=== PATIENT | male | born 1970 | race Caucasian/White ===

== ENCOUNTER 2023-05-10 08:15 | Outpatient (OUT) | payer OTHER, SELFPAY ==
[2023-05-10 08:44] LABS: Basophils Absolute Auto 0.1 10^3/uL (0.0-0.1); Basophils Percent Auto 0.8 % (0.2-2.0); Eosinophils Absolute Auto 0.2 10^3/uL (0.0-0.7); Eosinophils Percent Auto 2.5 % (0.9-7.0); Hematocrit 45.7 % (42.0-54.0); Immature Granulocytes Abs Auto 0.04 10^3/uL (0.00-0.03); Immature Granulocytes Pct Auto 0.5 % (0.0-0.5); Lymphocytes Absolute Auto 3.4 10^3/uL (1.2-3.8); Lymphocytes Percent Auto 38.1 % (20.5-60.0); Mean Corpuscular Hemoglobin 30.4 pg (25.9-34.0); Mean Corpuscular Volume 86.7 fL (80.0-94.0); Mean Platelet Volume 10.5 fL (9.5-13.5); Monocytes Absolute Auto 0.5 10^3/uL (0.3-0.8); Monocytes Percent Auto 5.3 % (1.7-12.0); Neutrophils Absolute Auto 4.7 10^3/uL (1.4-6.5); Neutrophils Percent Auto 52.8 % (43.0-75.0); Platelet Count 238 10^3/uL (150-450); Red Blood Count 5.27 10^6/uL (4.70-6.10); Red Cell Distribution Width 12.2 % (11.0-15.0); White Blood Count 8.9 10^3/uL (4.0-11.0)
[2023-05-10 09:04] LABS: Bilirubin Urine NEGATIVE (NEGATIVE); Blood Urine TRACE-I (NEGATIVE); Clarity Urine CLEAR (CLEAR); Color Urine YELLOW (YELLOW); Glucose Urine UA >=1000 mg/dL (NEGATIVE); Ketones Urine 15 mg/dL (NEGATIVE); Leukocyte Esterase Urine NEGATIVE (NEGATIVE); Nitrite Urine NEGATIVE (NEGATIVE); Protein Urine 30 mg/dL (NEG/TRACE); Specific Gravity Urine 1.015 (1.005-1.025); Urobilinogen Urine 0.2 EU/dL (0.2-1.0); pH Urine 5.5 (5.0-9.0)
[2023-05-10 09:14] LABS: Bacteria Urine NONE SEEN #/HPF (NONE SEEN); Cast Seen? NONE SEEN #/LPF (NONE SEEN); Crystals Seen? None Seen #/HPF (None Seen); Mucus Urine NONE SEEN (NONE SEEN); RBC Urine NONE SEEN #/HPF (0-2); Squamous Epithelial Cell Urine NONE SEEN #/LPF (NONE/RARE); WBC Urine NONE SEEN #/HPF (NONE SEEN)
[2023-05-10 09:33] LABS: Estimated Average Glucose 344 mg/dL; Glycohemoglobin A1C 13.6 % (4.5-6.2)
[2023-05-10 09:40] LABS: Free T4 1.15 ng/dL (0.76-1.46)
[2023-05-10 09:50] LABS: Alanine Aminotransferase 198 U/L (16-63); Albumin Globulin Ratio 0.9; Albumin Level 3.8 g/dL (3.4-5.0); Alkaline Phosphatase 119 U/L (46-116); Anion Gap 18.5; Aspartate Amino Transferase 168 U/L (15-37); Calcium 9.3 mg/dL (8.5-10.1); Carbon Dioxide 23.2 mmol/L (21.0-32.0); Chloride 97 mmol/L (98-107); Estimated GFR (African America >60 (>=60); Estimated GFR (Non-African Ame >60 (>=60); Free T3 2.82 pg/mL (2.18-3.98); Globulin 4.1 g/dL; Glucose 402 mg/dL (74-106); Potassium 3.7 mmol/L (3.5-5.1); Sodium 135 mmol/L (136-145); Thyroid Stimulating Hormone 0.691 uIU/mL (0.358-3.740); Total Protein 7.9 g/dL (6.4-8.2)
[2023-05-11 13:07] LABS: Insulin 10.5 uIU/mL (2.6-24.9)
== END 2023-05-10 08:16 | disposition home or self-care (01) ==
PROVIDERS: PCP Family Medicine; Visit Provider Family Medicine
DX: Z00.00 Encounter for general adult medical examination without abnormal findings (principal); R35.0 Frequency of micturition; R53.83 Other fatigue; Z79.899 Other long term (current) drug therapy
CPT/HCPCS: 36415; 80053; 81001; 83036; 83525; 84439; 84443; 84481; 85025; 87086

== ENCOUNTER 2024-01-31 07:05 | Outpatient (OUT) | payer OTHER, SELFPAY ==
[2024-01-31 07:31] LABS: Basophils Absolute Auto 0.1 10^3/uL (0.0-0.1); Basophils Percent Auto 0.7 % (0.2-2.0); Eosinophils Absolute Auto 0.3 10^3/uL (0.0-0.7); Eosinophils Percent Auto 3.3 % (0.9-7.0); Hematocrit 45.2 % (42.0-54.0); Immature Granulocytes Abs Auto 0.05 10^3/uL (0.00-0.03); Immature Granulocytes Pct Auto 0.5 % (0.0-0.5); Lymphocytes Absolute Auto 3.3 10^3/uL (1.2-3.8); Lymphocytes Percent Auto 32.4 % (20.5-60.0); Mean Corpuscular HGB Conc 33.2 g/dL (29.9-35.2); Mean Corpuscular Hemoglobin 29.7 pg (25.9-34.0); Mean Corpuscular Volume 89.5 fL (80.0-94.0); Mean Platelet Volume 9.9 fL (9.5-13.5); Monocytes Absolute Auto 0.6 10^3/uL (0.3-0.8); Monocytes Percent Auto 6.2 % (1.7-12.0); Neutrophils Absolute Auto 5.8 10^3/uL (1.4-6.5); Neutrophils Percent Auto 56.9 % (43.0-75.0); Platelet Count 216 10^3/uL (150-450); Red Blood Count 5.05 10^6/uL (4.70-6.10); Red Cell Distribution Width 12.8 % (11.0-15.0); White Blood Count 10.3 10^3/uL (4.0-11.0)
[2024-01-31 07:36] LABS: Estimated Average Glucose 108 mg/dL; Glycohemoglobin A1C 5.4 % (4.5-6.2)
[2024-01-31 10:40] LABS: Alanine Aminotransferase 37 U/L (16-63); Albumin Globulin Ratio 1.2; Alkaline Phosphatase 59 U/L (46-116); Anion Gap 13.1; Aspartate Amino Transferase 20 U/L (15-37); Bilirubin Total 1.1 mg/dL (0.2-1.0); Calcium 9.5 mg/dL (8.5-10.1); Carbon Dioxide 27.9 mmol/L (21.0-32.0); Chloride 105 mmol/L (98-107); Chol HDL Ratio 4.3; Cholesterol 193 mg/dL (<=200); Estimated GFR (African America >60 (>=60); Estimated GFR (Non-African Ame >60 (>=60); Free T3 3.15 pg/mL (2.18-3.98); Globulin 3.4 g/dL; Glucose 94 mg/dL (74-106); HDL Cholesterol 45 mg/dL (40-60); Sodium 142 mmol/L (136-145); Thyroid Stimulating Hormone 0.982 uIU/mL (0.358-3.740); Total Protein 7.4 g/dL (6.4-8.2); Triglycerides 211 mg/dL (<=150); VLDL CHOLESTEROL 42.2 mg/dL
[2024-01-31 10:45] LABS: Prostate Specific Antigen Scrn 0.29 ng/mL (<=4.00)
== END 2024-01-31 07:06 | disposition home or self-care (01) ==
PROVIDERS: PCP Family Medicine; Visit Provider Family Medicine
DX: Z00.00 Encounter for general adult medical examination without abnormal findings (principal)
CPT/HCPCS: 36415; 80053; 80061; 83036; 84436; 84443; 84481; 85025; G0103

== ENCOUNTER 2024-02-11 06:30 | Outpatient (REF) | payer OTHER, SELFPAY ==
[2024-02-11 20:13] LABS: Internal Control Within Normal Limits; Occult Blood Negative
--- OUTSIDE RECORDS SUMMARY | 2024-02-16 09:09 | XMS_ITS | CCD ---
Author Organization [facility] [employer] [facility] Medications Current Medications Medication Drug Class(es) Dates Sig (Normalized) Sig (Original) losartan potassium 100 mg oral tablet (1 source) Angiotensin 2 Receptor Stuart Start: 12-20-2023 take 100 mg by mouth once daily Losartan Active 100 MG PO Daily December 20, 2023 12:00am metFORMIN hydrochloride 500 mg oral tablet (1 source) Biguanide Start: 12-20-2023 take 500 mg by mouth twice daily at mealtime Metformin Active 500 MG PO Twice daily with meals December 20, 2023 12:00am metoprolol tartrate 50 mg oral tablet (1 source) beta-Adrenergic Stuart Start: 12-20-2023 take 50 mg by mouth twice daily Metoprolol Tartrate Active 50 MG PO Twice daily December 20, 2023 12:00am Vital Signs Date Time Vital Sign Value Performing Clinician Bev samuel 12-20-2023 11:28-0400 Body height 185.42 cm [facility] 12-20-2023 11:28-0400 Body mass index (BMI) [Ratio] 32.8 kg/m2 [facility] 12-20-2023 11:28-0400 Body temperature 98.2 [degF] [facility] 12-20-2023 11:28-0400 Body weight 113.05 kg [facility] 12-20-2023 11:28-0400 Heart rate 74 /min [facility] 12-20-2023 11:28-0400 Respiratory rate 18 /min [facility] 12-20-2023 11:28-0400 SaO2% (BldA) [Mass fraction] 98 % [facility] Encounters Encounter Date Encounter Type Care Provider Facility Start: 12-20-2023 End: 12-20-2023 ambulatory [facility] Work Phone: Start: 12-20-2023 End: 12-20-2023 Patient encounter procedure [facility] Work Phone: Payers Date Payer Category Payer Policy ID Unknown [place] [id number] Unknown [facility] [id number] Unknown [facility] [id number] Social History Date Type Detail Facility Start: 12-20-2023 Tobacco smoking stat us AKIS Never smoked tobacco (finding) [facility] Start: 1970 Sex Assigned At Male F [facility] Evaluation note Note Date & Type Note Facility Evaluation note No assessment information availa ble [facility] Work Phone: Chief Complaint and Reason for Visit Chief Complaint Sinus congestion, co ugh, headache, ear discomfort Family History Relationship Condition Age at Onset Recorded Date/T vanda father Hypertension Unknown Not Specified Diabetes mellitus Unknown Advance Directives Advance Directive Response Recorded Date/ Time Advance Directives No December 19 11:20am Additional Source Comments Care Teams (unrecognized sec tion and content) Team Status: Active Member Role Status Dates Neeraj Cortez MD Primary Care Provider Active Team Status: Inactive Member Role Status Dates Sadaf Roberts APRN Attending Provider Active Start: December 20, 2023 End: December 20, 2023 Neeraj Cortez MD Primary Care Provider Active Start: December 20, 2023 End: December 20, 2023 Goals (unrecognized section and content) Goals may be documented in a n alternate section FOR RECORDS PERTAINING TO PATIENTS WHO ARE OR HAVE BEEN ENROLLED IN A CHEMICAL DEPENDENCY/SUBSTANCEABUSE PROGRAM, SOME INFORMATION MAY BE OMITTED. This clinical summary was aggregated from multiple sources. Caution should be exercised in using it in the provision of clinical care. This summary normalizes information from multiple sources, and as a consequence, information in this document may materially change the coding, format and clinical context of patient data. In addition, data may be omitted in some cases. CLINICAL DECISIONS SHOULD BE BASED ON THE PRIMARY CLINICAL RECORDS. [facility] [employer] [facility]. provides no warranty or guarantee of the accuracy or completeness of information in this document.
== END 2024-02-11 06:31 | disposition home or self-care (01) ==
LOC: LAB 06:30
PROVIDERS: PCP Family Medicine; Visit Provider Family Medicine
DX: Z00.00 Encounter for general adult medical examination without abnormal findings (principal)
CPT/HCPCS: G0328

== ENCOUNTER 2025-02-26 07:46 | Outpatient (OUT) | payer OTHER, SELFPAY ==
--- OUTSIDE RECORDS SUMMARY | 2024-12-27 11:00 | XMS_ITS ---
Author Organization [facility] in [place] Address [address] [place] [address] Care Team Providers Care Spring Fitter Name Role Phone Dana Mendoza Primary Care Provider [phone] REASON FOR VISIT bp Vital Signs Blood pressure systolic 162 mm Hg 12/28/19 25 Blood pressure diastolic 88 mm Hg 025 Height 73 in 12/27/2024 Encounters Encounter Location Date Provider Diagnosis [facility] [address] [place] [address] 12/27/2024 Mendoza Cortez Hypertension I10 Assessments Encounter Date Diagnosis (ICD Code) Assessment Notes Treatment Notes Treatment Clinical Notes Section Notes 12/27/2024 Hypertension (ICD-10 - I10) Plan Of Treatment Next Appt Details Provider Name:Mendoza Cortez, 04:00:00 PM, [address] [place], [address], Progress Notes * Alberto THAPA CDOB:1970 (54 yo M)Acc No.[id number]:12/27/2024 Nurse Visit Patient: Alberto LANGE Provider: Mary Cotrez [facility] Jacinto :1970 A ge:54 Y S ex:Male Date:12/27/2024 Address:[address] [place] [address], [facility] Check In:04:17 PM ESTCheck O ut:04:27 PM EST Subjective: * Chief Complaints: * 1 . Bp. * Active Problem List I10 Essential (primary) hypertension Modified On:10/01/2023 Status:confirmed J30.9 Allergic rhinitis Modified On:06/05/2023 Status:confirmed M25.50 Arthralgia Modified On:06/05/2023 Status:confirmed E78.00 Hypercholesteremia Modified On:06/05/2023 Status:confirmed F41.9 Anxiety Modified On:06/05/2023 Status:confirmed E11.9 Diabetes mellitus Modified On:10/01/2023 Status:confirmed V70.0 Well adult Modified On:01/28/2024 Status:confirmed * Medical History: Objective: * Vitals: H t: 73 in, BP:162/88mm Hg, Ht-cm: 185.42 cm. Assessment: * Assessment: 1. H ypertension - I10 (Primary) Plan: * Treatment: * Procedure Codes: N OCHG NO CHARGE * * Sign off status: Completed Visit Status: C HK (Check Out) true * Provider: Mary Cortez ([facility])MD Date: 0 12/27/2024 Generated for Kathy jewell/Maxine/Quitaitting on: 02/26/2025 07:51 AM EDT
--- OUTSIDE RECORDS SUMMARY | 2024-12-27 12:28 | XMS_ITS ---
Author Organization [facility] [place] Address [address] [place] [address] Care Team Providers Care Improvement Manager Name Role Phone Mendoza Cortez Primary Care Provider [phone] REASON FOR VISIT BP check Medications Medication SIG (Take, Route, Fr equency, Duration) Notes Start Date End Date Status Irbesartan 300 MG 1 tablet Orally Once a day for 30 days 11/18/2024 Active Encounters Encounter Location Date Provider Diagnosis [facility] [address] [place] [address] 12/27/2024 Mendoza Dana Plan Of Treatment Medication Medication Name Sig Start Date Stop Date Notes Irbesartan 300 MG 1 tablet Orally Once a day for 30 days 0 11/18/2024 Next Appt Details Provider Name:Mendoza Ol[place]stead Wesmehul, 04:00:00 PM, [address] [place], [address], Progress Notes * Alberto THAPA CDOB:1970 (54 yo M)Acc No.[id number]:12/27/2024 Patient: Jude Alberto PALACIOS :1970 A ge:54 Y S ex:Male Address:[address] [place] [address], [place] [address] * Refills Refill Irbesartan Tablet, 300 MG, Orally, 30, 1 tablet, Once a day, 30 days, Refills=5 * true * Date: Generated for Printi ng/Maxine/Quitaitting on: 0 02/26/2025 07:51 AM EDT
--- OUTSIDE RECORDS SUMMARY | 2025-02-26 07:51 | XMS_ITS | Patient Health Record ---
Author Organization [facility] in [place] Address [address] [place] [address] Care Team Providers Care Woodyard Operator Name Role Phone Mendoza Pepper Primary Care Provider [phone] MARYANNE PEPPER Unavailable [phone] Allergies No Known Allergies Reason For Referral No Information Medications Medication SIG (Take, Route, Frequency, Duration) Notes Start Date End Date Status Accu-Chek Guide - DIRECTED DX: E11. 9 ONCE DAILY 90 DAYS for 90 Active Accu-Chek Softclix Lancets - USE 1 LANCET DX: E11.9 DAILY 90 DAYS for 90 Active Adipex-P 37.5 MG 1 tablet before breakfast Orally Once a day 06/30/2024 Not-Taking amLODIPine Besylate 10 MG 1 tablet Orally Once a day for 30 days 03/12/2024 Active Blood Glucose Monitor use montior Dx: E1 1.9 once daily for 90 days 06/12/2023 Active Irbesartan 300 MG 1 tablet Orally Once a day for 30 days 11/18/2024 Active Adipex-P 37.5 MG 1 tablet before breakfast Orally Once a day 02/14/2025 Active metFORMIN HCl 500 MG TAKE 1 TABLET BY MO UT once A DAY WITH A MEAL FOR 90 DAYS for 90 days Active Metoprolol Tartrate 75 MG TAKE 1 TABLET BY MOUTH TWICE A DAY WITH FOOD FOR 30 DAYS for 90 days Active Social History Tobacco Use: Social History Observation Description Date Details (start date - stop date) Never Smoker NA - NA Tobacco Use/Smoking Question Answer Notes Patient is a nonsmoker Alcohol Screen (Audit-C) Question Answer Notes Did you have a drink contain ing alcohol in the past year? Yes How often did you have a dri nk containing alcohol in the past year? Less than monthly (1 point) Points 1 Interpretation Negative AUDIT-C (Standard) Question Answer Notes Did you have a drink containing alcohol in the p ast year? No Points 0 Interpretation Negative Problems Problem Type SNOMED Code ICD Code Onset Dates Problem Status W/U Status Risk Notes Problem Well adult (395930007) Well adult (V70.0) Active confirmed Problem Anxiety (23670575) Anxiety (F41.9) Active confi rmed Problem Arthralgia (89135937) Arthralgia (M25.50) Active confirmed Problem Allergic rhinitis (88626596) Allergic rhinitis (J30.9) Active confirmed Problem Well adult (334078277) Well adult (Z00.00) Activ e confirmed Problem Essential hypertensi on (44600062) Essential (primary) hypertension (I10) Active confirmed Problem hypercholesterolemia (disorder) (63197975) Hypercholesteremia (E78.00) Active confirmed Problem Diabetes mellitus (27797585) Diabetes mellitus (E11.9) Active confirmed Vital Signs Blood pressure diastolic 78 mm Hg 02/14/2025 Height 73 in 02/14/2025 Blood pressure systolic 144 mm Hg 02/14/2025 Weight 259.4 lbs 02/14/2025 BMI 34.22 kg/m2 02/14/2025 Encounters Encounter Location Date Provider Diagnosis [facility] [address] [facility] [place] [address] 03/12/2024 MARYANNE PEPPER [facility] [address] [place] [facility] [place] [address] 11/02/2024 Mendoza Pepper Essential (primary) hypertension I10 and Well adult V70.0 [facility] [address] [place] [address] 11/17/2024 Mendoza Pepper [facility] [address] [facility] [address] 12/27/2024 Mendoza Pepper [facility] [address] [place] [address] 05/05/2024 Mendoza Pepper Essential (primary) hypertension I10 and Diabetes mellitus E11.9 [place] [address] [place] [address] 06/02/2024 Mendoza Hoy Essential (primary) hypertension I10 and Diabetes mellitus E11.9 [facility] [address] [place] [address] 06/30/2024 Mendoza Hoy Diabetes mellitus E1 1.9 [facility] [address] [place] [address] 10/20/2024 Mendoza Hoy Essential (primary) hypertension I10 and Diabetes mellitus E11.9 [facility] [address] [place] [address] 02/14/2025 Mendoza Hoy Well adult Z00.00 [facility] [address] [place] [address] 12/27/2024 Mendoza Hoy Hypertension I10 Assessments Encounter Date Diagnosis (ICD Code) Assessment Notes Treatment Notes Treatment Clinical Notes Section Notes 05/05/2024 Essential (primary) hypertension (ICD-10 - I10) 05/05/2024 Diabetes mellitus (ICD-10 - E11.9) 06/02/2024 Essential (primary) hypertension (ICD-10 - I10) 06/02/2024 Diabetes mellitus (ICD-10 - E11.9) 06/30/2024 Diabetes mellitus (ICD-10 - E11.9) 10/20/2024 Essential (primary) hypertension (ICD-10 - I10) 10/20/2024 Diabetes mellitus (ICD-10 - E11.9) 12/27/2024 Hypertension (ICD-10 - I10) 02/14/2025 Well adult (ICD-10 - Z00.00) 11/02/2024 Essential (primary) hypertension (ICD-10 - I10) 11/02/2024 Well adult (ICD9-CM - V70.0) Plan Of Treatment Pending Test Test Name Order Date CMP (COMPLETE METABOLIC PANEL) 4 CMP (COMPLETE METABOLIC PANEL) 3 UA (URINALYSIS, COMPLETE) 05/05/2023 HEMOGLOBIN A1C (GLYCO) 02/14/2025 HEMOGLOBIN A1C (GLYCO) 01/28/2024 LIPID PANEL (CHOL/TRIG/HDL/LDL) 02/15/20 25 LIPID PANEL (CHOL/TRIG/HDL/LDL) 01/28/20 24 CBC WITH DIFF 01/28/2024 PSA, PROSTATE-SPECIFIC ANTIGEN 4 T3 FREE, T4 FREE and TSH 05/05/2023 Urine Culture 05/05/2023 STOOL OCCULT BLOOD 01/28/2024 STOOL OCCULT BLOOD 02/14/2025 CBC AUTO DIFF 05/05/2023 GLYCOHEMOGLOBIN A1C 05/05/2023 INSULIN 05/05/2023 URINE MICROSCOPIC ONLY 05/05/2023 THYROID PANEL (T4/TSH/FREE T3) 5 THYROID PANEL (T4/TSH/FREE T3) 4 PSA, SCREENING 02/14/2025 CMP (COMP MET MENDIOLA) w/eGFR CKD-EPI 2024 CBC WITH DIFF 02/14/2025 Next Appt Details Provider Name:Mendoza Pepper, 04:00:00 PM, [address] [place], [address], Insurance Providers Payer Name Payer Address Payer Phone Subscriber Number Group Number Insured Name Patient Relationship to Insured Coverage Start Date Coverage End Date [employer] [place] [address] [place] [phone] [id number] Alberto Ruano Self - patient is the insured Medical (General) History Medical History History ICD Code Essential (primary) hypertension I10 Allergic rhinitis J30.9 Arthralgia M25.50 Hypercholesteremia E78.00 Anxiety F41.9 Right fibula closed avulsion fracture Surgical History Surgery Date(Month/Year) T&A Left shoulder surgery
--- OUTSIDE RECORDS SUMMARY | 2025-02-26 07:51 | XMS_ITS | CCD ---
Author Organization [facility] Care Team Providers Care Medical Corps Officer Name Role Phone Ruby ZAVALA Attending Unavailable Medications Current Medications Medication Drug Class(es) Dates [...] Sign Value Performing Clinician Bev samuel 12-20-2023 11:280400 Body height 185.42 cm [facility] 12-20-2023 11:280400 Body mass index (BMI) [Ratio] 32.8 kg/m2 [facility] 12-20-2023 11:28040 Body temperature 98.2 [degF] [facility] 12-20-2023 11:28040 Body weight 113.05 kg [facility] 12-20-2023 11:280400 Heart rate 74 /min [facility] 12-20-2023 11:28040 Respiratory rate 18 /min [facility] 12-20-2023 11:280400 SaO2% (BldA) [Mass fraction] 98 % [facility] Encounters Encounter Date Encounter Type Care Provider Facility Start: 06-25-2024 End: 06-25-2024 ambulatory Ruby ZAVALA Facility:[facility] Start: 12-20-2023 End: 12-20-2023 ambulatory [facility] Work Phone: Start: 12-20-2023 End: 12-20-2023 Patient encounter procedure [facility] Work Phone: Payers Date Payer Category Payer Policy ID Unknown [place] [id number] Unknown [facility] [id number] Unknown [facility] [id number] Social History Date Type Detail Facility Start: 12-20-2023 Tobacco smoking stat us CAIS Never smoked tobacco (finding) [facility] Start: 1970 Sex Assigned At Male F [facility] Evaluation note Note Date & Type Note Facility Evaluation note No assessment information availa [facility] Work Phone: Chief Complaint and Reason for Visit Chief Complaint Sinus congestion, co ugh, headache, ear discomfort Family History No Family History Records Found Relationship Condition Age at Onset Recorded Date/T vanda father Hypertension Unknown Not Specified Diabetes mellitus Unknown Advance Directives No Advanced Directives Records Found Advance Directive Response Recorded Date/ Time Advance Directives No December 19 11:20am Summary Purpose Additional Source Comments Care Teams (unrecognized sec [...] be documented in a n alternate section (unrecognized sect ion and content) No Status Records Found INFORMATION SOURCE (unrecogn ized section and content) DATE CREATED AUTHOR 06/27/2024 [facility] FOR RECORDS PERTAINING TO PATIENTS WHO ARE [...] BE BASED ON THE PRIMARY CLINICAL RECORDS. [employer] provides no warranty or guarantee of the accuracy or completeness of information in this document.
--- OUTSIDE RECORDS SUMMARY | 2025-02-26 07:51 | XMS_ITS | Clinical Summary ---
Author Organization [facility] [facility] Address [id number] [address] [place] [address] Care Team Providers Care Case Management Manager Name Role Phone Neeraj Cortez MD Primary Care Provider +-3 Allergies No known active allergies Medications ibuprofen (ADVIL,MOTRIN) 200 mg tablet Take 200 mg by mouth every 6 (six) hours as needed for pain. Active acetaminophen (TYLENOL) 325 mg tablet Take 650 mg by mouth every 6 (six) hours as needed for pain. Active Active Problems Problem Noted Date Diagnosed Date Avulsion fracture of medial malleolus of right t ibia 03/11/2019 Closed avulsion fracture of distal end of right fibula 02/09/2019 Class 1 obesity without seri ous comorbidity with body mass index (BMI) of 32.0 to 32.9 in adult 02/09/2019 Family History Medical History Relation Name Comments Stroke Mother Relation Name Status Comments Father Alive Mother Alive Social History Tobacco Use Types Packs/Day Years Used Date Smoking Tobacco: Never Smokeless Tobacco: Never Alcohol Use Standard Drinks/Week Comments Yes 0 (1 standard drink = 0.6 oz pur e alcohol) Childcare Answer Date Recorded Childcare Unknown 02/24/2019 Employment Answer Date Recorded Employment Unknown 02/24/2019 Purpose - Life Answer Date Recorded Purpose and direction in life Unknown Sex and Gender Information Value Date Recorded Sex Assigned at Not on file Legal Sex Male 12:08 PM EDT Gender Identity Not on file Sexual Orientation Not on file Occupation Industry Job Start Date Job End Date [employer] Not on file Not on file Not on file [employer] [place] [employer] Not on file No t on file Not on file [employer] Not on file Not on file Not on file Last Filed Vital Signs Vital Sign Reading Time Taken Comments Blood Pressure 134/74 03/11/2019 9:40 AM EDT Pulse 80 03/11/2019 9:40 AM EDT Temperature - - Respiratory Rate 17 02/04/2019 2:00 PM EDT Oxygen Saturation - - Inhaled Oxygen Concentration - - Weight 111.6 kg (246 lb) 03/11/2019 9:40 AM EDT Height 185.4 cm (6' 1 ) 03/11/2019 9:40 AM EDT Body Mass Index 32.46 03/11/2019 9:40 AM EDT Plan of Treatment Health Maintenance Due Date Last Done Comments Depression Screening 1983 Tobacco Screening 1983 Adult BMI Screening 12/05/1989 DTaP,Tdap and Td Vaccines (1 - Tdap) 12/05/1990 Zoster (Shingles) Vaccine (1 of 2) 12/05/2021 Influenza Vaccine 05/16/2025 Medical Devices Not on file Insurance [employer] Care Teams Case Management Manager Relationship Specialty Start Date End Date Neeraj Cortez MD PCP - General Family Medicine 02/04/19
[2025-02-26 08:45] LABS: Basophils Absolute Auto 0.1 10^3/uL (0.0-0.1); Basophils Percent Auto 0.8 % (0.2-2.0); Eosinophils Absolute Auto 0.3 10^3/uL (0.0-0.7); Eosinophils Percent Auto 3.4 % (0.9-7.0); Hematocrit 43.2 % (42.0-54.0); Hemoglobin 14.9 g/dL (14.0-18.0); Immature Granulocytes Abs Auto 0.06 10^3/uL (0.00-0.03); Immature Granulocytes Pct Auto 0.6 % (0.0-0.5); Lymphocytes Absolute Auto 2.8 10^3/uL (1.2-3.8); Lymphocytes Percent Auto 29.3 % (20.5-60.0); Mean Corpuscular HGB Conc 34.5 g/dL (29.9-35.2); Mean Corpuscular Hemoglobin 30.3 pg (25.9-34.0); Mean Platelet Volume 10.3 fL (9.5-13.5); Monocytes Absolute Auto 0.5 10^3/uL (0.3-0.8); Monocytes Percent Auto 5.1 % (1.7-12.0); Neutrophils Absolute Auto 5.9 10^3/uL (1.4-6.5); Neutrophils Percent Auto 60.8 % (43.0-75.0); Platelet Count 241 10^3/uL (150-450); Red Blood Count 4.91 10^6/uL (4.70-6.10); Red Cell Distribution Width 12.4 % (11.0-15.0); White Blood Count 9.7 10^3/uL (4.0-11.0)
[2025-02-26 10:05] LABS: Alanine Aminotransferase 38 U/L (16-63); Albumin Globulin Ratio 1.1; Albumin Level 3.8 g/dL (3.4-5.0); Alkaline Phosphatase 75 U/L (46-116); Anion Gap 15.3; Aspartate Amino Transferase 20 U/L (15-37); BUN Creatinine Ratio 16.5; Bilirubin Total 1.2 mg/dL (0.2-1.0); Calcium 9.5 mg/dL (8.5-10.1); Carbon Dioxide 26.9 mmol/L (21.0-32.0); Chloride 105 mmol/L (98-107); Chol HDL Ratio 3.9; Cholesterol 181 mg/dL (<=200); Estimated GFR (African America >60 (>=60 mL/min/1.73m^2); Estimated GFR (Non-African Ame >60 (>=60 mL/min/1.73m^2); Globulin 3.5 g/dL; Glucose 102 mg/dL (74-106); HDL Cholesterol 47 mg/dL (40-60); Potassium 4.2 mmol/L (3.5-5.1); Sodium 143 mmol/L (136-145); Total Protein 7.3 g/dL (6.4-8.2); Triglycerides 204 mg/dL (<=150); VLDL CHOLESTEROL 40.8 mg/dL
[2025-02-26 10:15] LABS: Estimated Average Glucose 123 mg/dL; Glycohemoglobin A1C 5.9 % (4.5-6.2)
[2025-02-26 10:25] LABS: Prostate Specific Antigen Scrn 0.34 ng/mL (<=4.00)
== END 2025-02-26 07:47 | disposition home or self-care (01) ==
PROVIDERS: PCP Family Medicine; Visit Provider Family Medicine
DX: Z00.00 Encounter for general adult medical examination without abnormal findings (principal); Z12.12 Encounter for screening for malignant neoplasm of rectum
CPT/HCPCS: 36415; 80053; 80061; 83036; 84436; 84443; 84481; 85025; G0103

== ENCOUNTER 2025-02-28 16:00 | Outpatient (REF) | payer OTHER, SELFPAY ==
[2025-02-28 17:20] LABS: Internal Control Within Normal Limits; Occult Blood Negative
== END 2025-02-28 16:01 | disposition home or self-care (01) ==
LOC: LAB 16:00
PROVIDERS: PCP Family Medicine; Visit Provider Family Medicine
DX: Z00.00 Encounter for general adult medical examination without abnormal findings (principal); Z12.12 Encounter for screening for malignant neoplasm of rectum
CPT/HCPCS: G0328